=== PATIENT | female | born 1950 | race Caucasian/White ===

== ENCOUNTER → 2017-01-03 | Outpatient (CLI) | payer OTHER, SELFPAY ==
[~2017-01-03] MED LIST: HALFPRIN81 MG PO; KLOR-CON M1010 MEQ PO; LASIX40 MG PO
== END | disposition short-term general hospital (02) ==
LOC: CLORTH 09:27
DX: M65.331 Trigger finger, right middle finger (principal)

== ENCOUNTER 2017-01-15 10:35 | Emergency (ER) | payer OTHER ==
[~2017-01-15] VITALS: Ht 175.3 cm; Wt 95.3 kg
== END 2017-01-15 11:24 | disposition short-term general hospital (02) ==
LOC: ER 10:35
DX: S39.012A Strain of muscle, fascia and tendon of lower back, initial encounter (principal); X50.1XXA Overexertion from prolonged static or awkward postures, initial encounter
CPT/HCPCS: J1885

== ENCOUNTER 2017-01-31 06:44 | Day surgery (SDC) | payer OTHER, SELFPAY ==
[~2017-01-31] VITALS: Ht 175.3 cm; Wt 95.3 kg
== END 2017-01-31 09:15 | disposition short-term general hospital (02) ==
LOC: SURGOP 06:44 → EDSTATUS 08:51 → SURGOP 09:15
PROC: 0LN70ZZ Release Right Hand Tendon, Open Approach (ICD-10-PCS; principal; 2017-01-31)
DX: M65.331 Trigger finger, right middle finger (principal); I25.10 Atherosclerotic heart disease of native coronary artery without angina pectoris; I11.0 Hypertensive heart disease with heart failure; I50.9 Heart failure, unspecified; E78.5 Hyperlipidemia, unspecified; E66.9 Obesity, unspecified; F32.9 Major depressive disorder, single episode, unspecified; F41.9 Anxiety disorder, unspecified; Z68.30 Body mass index [BMI] 30.0-30.9, adult; F17.210 Nicotine dependence, cigarettes, uncomplicated; Z79.1 Long term (current) use of non-steroidal anti-inflammatories (NSAID); Z79.899 Other long term (current) drug therapy; Z90.49 Acquired absence of other specified parts of digestive tract; Z90.710 Acquired absence of both cervix and uterus; Z90.722 Acquired absence of ovaries, bilateral; Z98.890 Other specified postprocedural states
CPT/HCPCS: J0690; J2250

== ENCOUNTER → 2017-02-14 | Outpatient (CLI) | payer OTHER | END | disposition short-term general hospital (02) | LOC: CLORTH 01:41 | DX: Z47.89 Encounter for other orthopedic aftercare (principal); Z98.890 Other specified postprocedural states ==

== ENCOUNTER → 2017-03-07 | Outpatient (CLI) | payer OTHER | END | disposition short-term general hospital (02) | LOC: CLORTH 06:59 | DX: M17.12 Unilateral primary osteoarthritis, left knee (principal) ==